=== PATIENT | male | born 1990 | race Caucasian/White ===

== ENCOUNTER 2019-04-19 11:35 | Emergency (ER) | payer BC, SELFPAY ==
[2019-04-19 11:39] VITALS: BP 134/71; PULSE 71; TEMP 36.7; O2SAT 98
[2019-04-19] MEDS: diazePAM 10 MG/2 ML SYR IM (12:15)
[2019-04-19] MEDS: Ketorolac 60 MG/2 ML VIAL IM (12:16)
--- NOTE | 2019-04-19 12:23 | W.ED.GENAD ---
Discharge Plan Disposition Patient Disposition: HOME Condition: Stable Discharge Details Chief Complaint: Nk/Back Pain Clinical Impression: Back pain Primary Care Provider: None,None ED Provider: Adán Lopez Home Meds and New Rx's Prescriptions: Continued ibuprofen 800 mg Tablet 800 mg PO Q8H PRN PRNRF: 0 Discharge Instructions Instructions: Back Pain (ED) Additional Instructions: As we discussed, there is no clear indication for x-ray and I am unable to obtain MRI through the ER for a nonemergent process. Our care management team will reach out to you to help expedite outpatient care, primary care follow-up, and outpatient MRI if indicated. Please watch for new or worsening symptoms like we discussed and return immediately to the ER. Continue taking Motrin as directed. Cool and/or warm compresses every 2 hours for 20 minutes. Gentle stretching as tolerated Medical Decision Making 29-year-old gentleman presents with lower back pain, slightly worse in the left, that occurred yesterday that lifting. Denies any other injury, incontinence, saddle paresthesias, radiation of pain down his legs, numbness, tingling, weakness. Patient appears well at rest but pain does increase with movement. He is neurologically intact. No indication of cauda equina. No midline bony point tenderness. Patient and family are hoping for an MRI here in the ER today. They agree that there is no clear indication for an x-ray. I explained that from an ER standpoint, unable to order emergent MRI for emergent or life threatening etiologies although certainly not downplaying his symptoms. Conservative therapy would be that of anti-inflammatories, muscle relaxer, opiates, and outpatient follow-up for possible imaging, physical therapy, etc. [place], does not have a primary care provider, and I will have our care management team come talk with him to discuss expediting outpatient care. Patient given IM Toradol and Valium with very little relief. Upon reevaluation he is resting comfortably but does have increased pain with movement. Now given 4 mg IM morphine, upon reevaluation patient looks slightly improved but reports overall feeling about the same. Care management got tied up with another patient and rather than seeing him in the ER will contact him later today to help expedite outpatient care. Patient is significant other has no additional questions or concerns and are comfortable discharge. They will take [id number] Motrin and do not request a prescription for opiates or muscle relaxer as they did not really help here in the ER. We discussed ambulation. Patient gave crutches with teaching. Was able to ambulate steadily. HPI General Date/Time Provider Initiated Documentation: 04/19/19 11:36. Limitations to Documentation: no limitations. Information obtained by: patient and family. HPI Narrative: 29-year-old gentleman presents the ER for evaluation of pain that occurred suddenly yesterday evening lifting. He reports severe pain, worse with movement, and at the time of the injury felt a pop. He took ibuprofen at home with little relief. He denies any other injuries, abdominal pain, bowel or bladder issues, radiation of pain down the legs, numbness, tingling, weakness. He contacted a chiropractor and they recommended that he go to the ER for an MRI. Patient denies any significant back issues in the past. Related Data Home Medications Medication Instructions Recorded Confirmed ibuprofen 800 mg PO Q8H PRN PRN 04/19/19 04/19/19 Allergies Allergy/AdvReac Type Severity Reaction Status Date / Time No Known Allergies Allergy Unverified 04/19/19 11:43 General Stated Complaint: Nk/Back Pain SPENCER: 3 Review of Systems Constitutional Constitutional: Denies chills, Denies fatigue, Denies fever(s), Denies headache(s) and Denies weakness Eyes Eyes: Denies change in vision ENT Ears, Nose, Mouth, and Throat: Denies headache(s) and Denies neck pain Cardiovascular Cardiovascular: Denies chest pain Respiratory Respiratory: Denies cough Gastrointestinal Gastrointestinal: Denies abdominal pain, Denies change in bowel habits, Denies constipation, Denies diarrhea, Denies nausea and Denies vomiting Genitourinary Genitourinary: Denies difficulty urinating, Denies urinary hesitancy and Denies urinary incontinence Musculoskeletal Musculoskeletal: Reports back pain, Denies muscle weakness, Denies neck pain, Denies numbness, Denies radiating pain into limb and Denies tingling Integumentary/Breasts Skin/Breast: Denies rash Neurologic Neurologic: Denies headache(s), Denies numbness, Denies radicular pain, Denies tingling, Denies paresthesias and Denies weakness Endocrine Endocrine: Denies fatigue and Reports polyuria Hematologic/Lymphatic Hematologic/Lymphatic: Denies easy bleeding and Denies easy bruising PFS Social History Smoking/Tobacco Use Status: Never Alcohol Intake: current Alcohol Intake frequency: holidays/special occasions only Drug use: Never Substance use type: does not use Do you feel safe at home: Yes Do you feel safe in your relationship?: Yes Exam Const General: cooperative, healthy appearing and no acute distress Orientation: alert and awake [facility] Head: normal to inspection, normocephalic and atraumatic Mouth: moist mucous membranes Eyes Conjunctivae: conjunctivae normal Neck Neck: normal visual inspection, full ROM, no meningeal signs, trachea midline and supple Resp Effort & Inspection: normal respiratory effort and able to speak in complete sentences Auscultation: clear to auscultation bilaterally Cardio Rate: regular rate Rhythm: regular rhythm GI Inspection: normal to inspection Palpation: soft and nontender Back/Spine/Pelvis Back: no CVA tenderness, No erythema, No warmth and back tenderness (Diffuse mild lumbar, slightly worse on the left) Thoracic/Lumbar Spine: thoracic and lumbar spine normal to inspection, pain with thoraco-lumbar ROM, paraspinal tenderness (Left-sided lumbar), thoraco-lumbar ROM limited and No thoraco-lumbar spasm Skin General skin exam: no rashes or lesions noted Neuro General: alert, awake, moves all extremities and no focal motor deficits Sensory Exam: no sensory deficits noted Psych Appearance: grossly normal Mental Status: mental status grossly normal Course Vital Signs Vital signs: Vital Signs Temperature 36.7 C 04/19/19 11:39 Pulse 71 04/19/19 11:39 Blood Pressure 134/71 04/19/19 11:39 Pulse Oximetry 98 04/19/19 11:39 Temperature 36.7 C 04/19/19 11:39 Temperature Source Temporal Artery Scan 04/19/19 11:39 Pulse 71 04/19/19 11:39 Respiratory Effort Non-Labored 04/19/19 11:42 Blood Pressure 134/71 04/19/19 11:39 Blood Pressure Position Supine 04/19/19 11:39 Pulse Oximetry 98 04/19/19 11:39 Oxygen Delivery Method Room Air 04/19/19 11:39 Oxygen Flow Rate 0 04/19/19 11:39 Pain Level 10 04/19/19 12:22 Comment 04/19/19 11:39
== END 2019-04-19 13:57 | disposition home or self-care (01) ==
PROVIDERS: Emergency Provider Physician Assistant
DX: M54.5 Low back pain (principal)
CPT/HCPCS: 96372; 99284; 99283; E0114; J1885; J3360